=== PATIENT | female | born 2000 | race African-American/Black ===

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

== ENCOUNTER 2018-09-27 19:07 | Inpatient (IN) ==
[2018-09-27] MEDS ORDERED: LACTATED RINGER'S 1,000 ML IV SCH ×2 (19:30→20:23)
[2018-09-27 19:44] LABS: Basophils # (auto) 0.04 K/uL (0-0.2); Basophils % (auto) 0.3 %; Eosinophils # (auto) 0.02 K/uL (0-0.5); Eosinophils % (auto) 0.1 %; Hematocrit (blood only) 34.9 % (37-47); Immature Granulocytes # (auto) 0.12 K/uL (0.00-0.02); Immature Granulocytes % (auto) 0.8 %; Lymphocytes % (auto) 24.4 %; Mean Corpuscular Hgb Conc 34.4 g/dL (32-36); Mean Corpuscular Volume 91.4 fL (80-100); Mean Platelet Volume 11.6 fL (7.4-10.4); Monocytes # (auto) 1.47 K/uL (0.11-0.59); Monocytes % (auto) 9.7 %; Neutrophils # (auto) 9.82 K/uL (1.4-6.5); Neutrophils % (auto) 64.7 %; Platelet Count 205 K/uL (130-400); RDW Coefficient of Variation 12.9 % (11.5-14.5); RDW Standard Deviation 43.1 fL (36.4-46.3); Red Blood Count 3.82 M/uL (4.2-5.4); White Blood Count 15.17 K/uL (4.8-10.8)
[2018-09-27] MEDS ORDERED: CEFAZOLIN 2000MG 2,000 MG/15 ML SYR IV SCH (19:45)
[2018-09-27] MEDS ORDERED: CITRIC ACID/SODIUM CITRATE 15 ML UDC ONE (19:47)
--- NOTE | 2018-09-27 20:01 | Anesthesiology Consultation ---
Date of Service September 27, 2018 Assessment & Plan (1) Encounter for pre-operative examination: Chart Review Chart Review: Patient NOT seen in Pre Admission Testing and Acceptable Risk for Labor Epidural Consults Requested none ASA ASA2 Proposed Anesthesia Anesthesia Type: Spinal Risk / Benefits Reviewed With: PT / POA / Parent / Guardian, Accepts Plan and Informed Consent Obtained History Surgery Operation Date: 09/27/18 19:30 Proposed Procedures p Section in LD - Pedro Robles Jr, MD, FACOG Height/Weight Height: 5 ft 3 in Weight: 79.683 kg Allergies Allergy/AdvReac Type Severity Reaction Status Date / Time imipramine [From Tofranil] Allergy Chest Pain Verified 09/27/18 11:09 topiramate [From Topamax] Allergy Chest Pain Verified 09/27/18 11:08 Medications Home Medications Medication Instructions Recorded Confirmed Last Taken No Known Home Medications 09/27/18 09/27/18 Unknown Active Medications Generic Name Dose Route Start Last Admin Trade Name Freq PRN Reason Stop Dose Admin Citric Acid/Sodium Citrate 30 ml 09/28/18 06:00 09/27/18 19:48 Bicitra PO 09/28/18 06:01 30 ml PREOP ANA LAURA Administration Lactated Ringer's 1,000 mls @ 999 mls/hr 09/27/18 19:30 09/27/18 19:46 Lr IV 09/27/18 20:30 999 mls/hr .Q1H1M ANA LAURA Administration NPO Date Last Intake of Fluids: 09/27/18 Time Last Intake of Fluids: 18:00 Date Last Intake of Solids: 09/27/18 Time Last Intake of Solids: 16:30 Past Medical History Medical History Anxiety Attention deficit disorder (ADD) Bipolar disorder Depression Gastritis Post traumatic stress disorder Exercise / Class Metabolic Activity II 4-5 Yardwork/Stairs/Walk up hill Negative for chest pain or shortness of breath. Patient denies active symptoms of GERD. Past Family History Family History Brother Family history of diabetes mellitus Grandfather (Paternal) Family history of diabetes mellitus Past Surgical History Surgical History Family history of reaction to anesthesia MOTHER-SLOW TO WAKE UP History of section X 1 History of esophagogastroduodenoscopy (EGD) History of tooth extraction Nausea and vomiting after administration of anesthetic agent Past Anesthesia History No Hx of Anesthesia Complications History of PONV No Hx of Motion Sickness and History of PONV Social History Smoking Status: Current every day smoker tobacco type: cigarettes Smoking cigarettes per day: 3 Hx Alcohol Use: Yes (drank one week on vacation but none since +preg test) Alcohol type: hard liquor Hx Substance Use: No substance use type: does not use Review of Systems Patient denies history of abnormal bleeding or bleeding disorder. Patient denies active use of anticoagulants other than low dose aspirin. Patient denies numbness, tingling or weakness in lower extremities. Physical Exam Vital Signs Last Vital Signs Temp 36.8 C 09/27/18 19:25 Pulse 96 H 09/27/18 19:25 Resp 18 09/27/18 19:25 BP 103/52 L 09/27/18 19:25 Constitutional not obese (Gravid uterus) ENMT Mouth: no TMJ abnormality and oral opening not small Thyromental Distance: > or= 3.5 Finger Breadths Mallampati Class: I Neck normal visual inspection; neck extension not limited Respiratory normal respiratory effort Auscultation: lungs clear to auscultation bilaterally Cardiovascular Rate/Rhythm: regular rate and regular rhythm Heart Sounds: no murmur Neurologic moves all extremities Motor/Sensory: no sensory deficit Psychiatric Orientation: alert and oriented x 3 Testing Laboratory Results 09/27/18 19:33
[2018-09-27] MEDS ORDERED: PHENYLEPHRINE HCL 10 MG/ML VIAL ONE (20:04)
[2018-09-27] MEDS ORDERED: MoRPHine SULFATE PF 1 MG/ML 10 ML AMP/VIAL ONE (20:05)
[2018-09-27] MEDS ORDERED: fentaNYL citrate 100 MCG/2 ML VIAL ONE (20:05)
--- NOTE | 2018-09-27 20:10 | History & Physical Bridge Note ---
Date of Service September 27, 2018 History & Physical Bridge Note I have examined the patient, reviewed the History & Physical and in the interval since the performance of the History & Physical I have noted the following changes of clinical significance: Formal H&P dictated, permit signed
--- NOTE | 2018-09-27 20:37 | History and Physical Report ---
DATE OF ADMISSION: 09/27/2018 ADMITTING DIAGNOSES: 1. Term . 2. Spontaneous rupture of membranes with active labor. 3. Previous section. ADMISSION HISTORY: The patient is a 18-year-old 2, para 1 with an EDC of 10/08/2018 by dates and first trimester ultrasound who is admitted at 38+ weeks gestational age with spontaneous rupture of membranes and contractions. The patient states the membranes ruptured approximately 1700 hours, described the fluid as clear, with subsequent onset of contractions. The patient's first was a primary section for failure to progress. The patient had been counseled about the risks and benefits of a repeat section versus a vaginal after . The patient had been scheduled for the repeat section on 10/03/2018. The patient has had a benign course. Blood type is O positive, antibody negative, rubella immune and hepatitis B negative. She had a negative cell free DNA screening, negative AFP, normal 1 hour Glucola x2, and a negative third trimester beta strep culture. PAST MEDICAL HISTORY: OBSTETRICAL: As above. GYNECOLOGICAL: None. MEDICAL: Hypothyroidism. SURGICAL: [place] teeth extraction. ALLERGIES: No known drug allergies. SOCIAL HISTORY: Positive for smoking. FAMILY HISTORY: Noncontributory. REVIEW OF SYSTEMS: As per HPI. ADMISSION PHYSICAL EXAMINATION: GENERAL: Showed a gravid female, in no acute distress. VITAL SIGNS: Her blood pressure of 103/52 and weight of 180 pounds. HEENT EXAMINATION: Unremarkable. NECK: Supple. LUNGS: Clear. HEART: With a regular rhythm and rate. ABDOMEN: Gravid, vertex. Positive heart tones. Estimated weight of 7-1/2 pounds. PELVIC: Shows gross rupture. The cervix is 1 cm dilated, 70% effaced, -2 station. EXTREMITIES: Show no deep calf tenderness. NEUROLOGIC: Grossly intact. IMPRESSION: This patient is a 18-year-old 2, para 1 at 38+ weeks gestational age, previous sections and spontaneous rupture of membranes with labor. PLAN: The patient desires a repeat section. Risks, benefits and alternatives to the surgery have been discussed, while the benefits will be delivery of the , the risks are bleeding, infection, inadvertent injury to bowel or bladder, readmission or reoperation. The patient understands this, permit has been signed, and she wishes to proceed.
[2018-09-27] MEDS ORDERED: OXYTOCIN 10 UNITS/ML VIAL ONE ×4 (20:55→21:11)
[2018-09-27] MEDS ORDERED: MIDAZOLAM HCL 1 MG/ML 2ML VIAL ONE (20:57)
[2018-09-27] MEDS ORDERED: ONDANSETRON INJ 2 MG/ML 2 ML VIAL ONE (21:03)
--- NOTE | 2018-09-27 21:14 | Post Operative Brief Note ---
Immediate Post Op Note v1 Date of Surgery September 27, 2018 Pre & Post Diagnosis Operation Date: 09/27/18 19:30 Pre-Op Diagnosis: 1: Term 2: Spontaneous rupture of membranes 3: Previous section Post-Op Diagnosis: 1: Same 2: Uterine incision extension Procedure Operation Date: 09/27/18 19:30 <No data on this case meets the specified criteria> 1) Repeat LCT C/S 2) Repair uterine extension Surgeon Pedro Robles Jr, MD, FACOG Side Puller Nursing Estimated Blood Loss 800 Findings See Below (viable male Apgars 9/9; weight 6lbs 8 ozs, gasses pending, vertical midline extension of lower uterine incision, "inverted T", normal appearing tubes and ovaries bilaterally)
[2018-09-27 21:31] LABS: Base Excess Cord Arterial Bld -5.9 mEq/L (-9-1.8); CO2 Cord Arterial Blood 44 mmHg (39.1-73.5); HCO3 Cord Arterial Blood 21 mmol/L (19.7-28.5); pH Cord Arterial Blood 7.29 (7.1-7.38)
[2018-09-27 21:37] LABS: Base Excess Cord Venous Blood -5.5 mEq/L (-7.7-1.9); Cord Venous Blood HCO3 18 mmol/L (18.4-26.8); Cord Venous Blood PCO2 31 mmHg (30.4-57.2); Cord Venous Blood PO2 27 mmHg (14.1-43.3); Cord Venous Blood pH 7.39 (7.20-7.44)
[2018-09-27 21:38] LABS: Oxygen Sat Cord Arterial Blood < 60.0 % (<60)
[2018-09-27] MEDS ORDERED: NALOXONE HCL 0.4 MG/1 ML VIAL/CARP IV PRN (21:43)
[2018-09-27] MEDS ORDERED: PROMETHAZINE HCL 25 MG in SODIUM CHLORIDE 0.9% 50 ML IV PRN (21:43)
[2018-09-27] MEDS ORDERED: ONDANSETRON INJ 2 MG/ML 2 ML VIAL IV PRN (21:43)
[2018-09-27] MEDS ORDERED: ePHEDrine sulfate 50 MG/ML AMP IV PRN (21:43)
[2018-09-27] MEDS ORDERED: MoRPHine SULFATE 2 MG/ML CARP IV PRN (21:43)
[2018-09-27] MEDS ORDERED: NALOXONE HCL 0.08 MG in SYRINGE 1.8 ML IV PRN (21:43)
[2018-09-27] MEDS ORDERED: LACTATED RINGER'S 500 ML IV PRN (21:43)
[2018-09-27] MEDS ORDERED: ACETAMINOPHEN 1000 MG/100 ML IV IV PRN (21:43)
[2018-09-27] MEDS ORDERED: NALOXONE HCL 1 MG in SODIUM CHLORIDE 0.9% 1000ML 1,000 ML IV PRN (21:43)
[2018-09-27] MEDS ORDERED: NALBUPHINE HCL INJ 10 MG/ML AMP IV PRN (21:43)
[2018-09-27] MEDS ORDERED: KETOROLAC 30 MG/ML VIAL IV PRN ×2 (21:43→22:32)
[2018-09-27] MEDS ORDERED: DiphenhydrAMINE HCL 50 MG/ML VIAL IV PRN (21:43)
[2018-09-27] MEDS ORDERED: MoRPHine SULFATE PF 1 MG/ML 10 ML AMP/VIAL INT SPINAL ONE (21:43)
[2018-09-27] MEDS ORDERED: NO NARCOTICS OR SEDATIVES SCH (21:45)
[2018-09-27] MEDS ORDERED: SODIUM CHLORIDE 0.9% 1000ML 1,000 ML IV SCH (21:45)
[2018-09-27] MEDS ORDERED: DC INTRASPINAL MORPHINE SCH (21:45)
[2018-09-27] MEDS ORDERED: ACETAMINOPHEN 1,000 MG/100 ML VIAL IV PRN (22:00)
--- NOTE | 2018-09-27 22:17 | Anesthesiology Progress Note ---
Date of Service September 27, 2018 Anesthesia Post Procedure Vital Signs Vital Signs: Temp Pulse Resp BP Pulse Ox 09/27/18 22:13 78 99 09/27/18 22:12 68 20 108/54 L 09/27/18 22:08 76 98 09/27/18 22:03 80 18 117/56 L 99 09/27/18 21:58 78 98 09/27/18 21:55 69 16 113/57 L 09/27/18 21:53 82 99 09/27/18 21:52 89 90 09/27/18 21:48 84 99 09/27/18 21:43 87 99 09/27/18 21:42 75 18 143/64 H 09/27/18 21:38 82 97 09/27/18 21:33 73 100 09/27/18 21:32 36.5 C 73 18 101/56 L 09/27/18 19:25 36.8 C 96 H 18 103/52 L 09/27/18 19:14 96 H 103/52 L Pain Intensity Lower Abdomen: Pain Intensity: 3 Transfer of Care Handoff Completed per policy Notes Mental Status: alert / awake / arousable and participated in evaluation Nausea / Vomiting: adequately controlled Pain: adequately controlled Airway Patency, RR, SpO2: stable & adequate BP & HR: stable & adequate Hydration State: stable & adequate Neuraxial Anesthesia: was administered and sensory block is resolving Anesthetic Complications: no major complications apparent and Pt Satisfied with anesthetic care
[2018-09-27] MEDS ORDERED: SUPERCREAM 0.870% 15 GM JAR EXT PRN (22:32)
[2018-09-27] MEDS ORDERED: BENZOCAINE 20% AER SPR 82.5 GM CAN EXT PRN (22:32)
[2018-09-27] MEDS ORDERED: DIPHTHERIA/TETANUS/PERTUSSIS 0.5 ML SYR/VIAL IM ONE (22:32)
[2018-09-27] MEDS ORDERED: HYDROCORTISONE ACETATE 25 MG SUPP PR PRN (22:32)
--- NOTE | 2018-09-27 22:36 | Operative Report ---
DATE OF OPERATION: 09/27/2018 PREOPERATIVE DIAGNOSES: 1. Term . 2. Spontaneous rupture of membranes. 3. Previous section. POSTOPERATIVE DIAGNOSES: 1. Term . 2. Uterine incision extension. PROCEDURE PERFORMED: 1. Repeat low cervical transverse section. 2. Repair of uterine extension. SURGEON: Pedro Robles MD ANESTHESIA: Spinal. FINDINGS: Viable male infant with Apgars of 9 and 9, weight of 6 pounds 8 ounces, normal appearing tubes and ovaries bilaterally. Arterial and venous cord gases are pending. Vertical midline extension of the uterine incision on the inferior margin of the uterine incision creating an inverted T extension and uterine incision closed with 2 layers of 4-0 Vicryl. PROCEDURE IN DETAIL: The patient was taken to the operating room and after general anesthesia, was placed in supine position and draped and prepped in the usual fashion. Pfannenstiel type incision excising previous surgical scar was made. Underlying subcutaneous tissue was dissected down to the ventral abdominal fascia, which was nicked and opened in a horizontal manner. Preperitoneal fascia was dissected away until the peritoneal cavity was entered and opened in a vertical manner. Bladder blade was placed and the peritoneum overlying the uterus was elevated, opened in a semi-lunar fashion, the inferior margin of which was taken down creating the bladder flap. The uterus was entered sharply and extended in a semilunar fashion, rupture of clear fluid. Viable male was delivered. Cord was clamped and cut and the baby was passed off to pediatrics who was in attendance for the delivery. Cord gases were obtained. The placenta was delivered spontaneously and the uterus was exteriorized. The uterine incision had a midline extension of the inferior margin extending downward for a distance of 5 cm. The edges of the uterine incision were isolated with T clamps. The extension was closed with 2 layers of 4-0 Vicryl, the first a running locking stitch, the second an imbricating stitch. The uterine incision was then closed with 2 layers of 4-0 Vicryl, first a running locking stitch and the second an imbricating stitch. Hemostasis was present. The pelvis was thoroughly irrigated with 1000 mL of warm saline. The uterine incision was clean, dry and intact. The uterus was returned to the pelvic cavity. The pericolic gutters were cleared bilaterally of any blood tissue and/or clot. Sponge and needle count was correct. Inspection of the uterine incision again showed hemostasis. The rectus muscle was then plicated in the midline with a running 2-0 Vicryl suture and the fascia was closed laterally with a running 0 Vicryl stitch. The subcutaneous tissue was irrigated with warm saline and the skin incision was closed with a 4-0 Monocryl subcuticular suture. Sterile dressing was applied. The patient was taken to the recovery room in satisfactory condition. I attest to the content of the Intraoperative Record and any orders documented therein. Any exception s are noted below.
[2018-09-28] MEDS: LACTATED RINGER'S 1,000 ML IV SCH ×2 (02:09→07:51)
[2018-09-28] MEDS: IBUPROFEN 600 MG TAB PO PRN ×5 (04:08→23:06)
[2018-09-28] MEDS ORDERED: CITRIC ACID/SODIUM CITRATE 15 ML UDC PO SCH (06:00)
[2018-09-28 06:31] LABS: Basophils # (auto) 0.03 K/uL (0-0.2); Basophils % (auto) 0.2 %; Eosinophils # (auto) 0.02 K/uL (0-0.5); Eosinophils % (auto) 0.1 %; Hematocrit (blood only) 30.4 % (37-47); Hemoglobin 10.2 g/dL (12.0-16.0); Immature Granulocytes # (auto) 0.09 K/uL (0.00-0.02); Immature Granulocytes % (auto) 0.5 %; Lymphocytes # (auto) 2.87 K/uL (1.2-3.4); Lymphocytes % (auto) 14.4 %; Mean Corpuscular Hgb Conc 33.6 g/dL (32-36); Mean Corpuscular Volume 91.3 fL (80-100); Monocytes # (auto) 1.76 K/uL (0.11-0.59); Monocytes % (auto) 8.8 %; Neutrophils # (auto) 15.21 K/uL (1.4-6.5); Platelet Count 188 K/uL (130-400); RDW Coefficient of Variation 12.9 % (11.5-14.5); RDW Standard Deviation 43.2 fL (36.4-46.3); Red Blood Count 3.33 M/uL (4.2-5.4); White Blood Count 19.98 K/uL (4.8-10.8)
--- NOTE | 2018-09-28 08:02 | Obstetrical Progress Note ---
Date of Service September 28, 2018 Assessment & Plan (1) Previous delivery affecting , antepartum: - discussed surgery and finding with patient - will begin ambulation later in the day - routine care - doing well Subjective Voiding: [place] catheter in place Feeding Type:: breast feeding Physical Exam Constitutional WD/WN, vitals as above Respiratory normal respiratory effort, lungs clear to auscultation Cardiovascular RRR, no murmur, no edema Gastrointestinal (Abdomen) Incision intact, appropriate post-op tenderness Musculoskeletal (-) deep calf tenderness Results & Data Vital Signs (Past 12 Hours) Vital Signs Temp Pulse Pulse Resp BP BP Pulse Ox 09/28/18 06:55 18 99 09/28/18 05:55 18 99 09/28/18 04:55 16 95 09/28/18 03:55 18 98 09/28/18 03:48 36.9 C 76 18 109/65 97 09/28/18 02:55 18 97 09/28/18 01:55 18 98 09/28/18 00:55 37.0 C 81 18 113/65 97 09/27/18 23:55 36.8 C 78 18 120/71 96 09/27/18 23:45 96 H 98 09/27/18 23:40 83 98 09/27/18 23:35 93 H 99 09/27/18 23:33 84 98 09/27/18 23:32 36.8 C 83 18 111/59 L 09/27/18 23:28 80 97 09/27/18 23:23 81 99 09/27/18 23:22 75 110/61 09/27/18 23:18 81 98 09/27/18 23:13 79 98 09/27/18 23:12 76 108/60 09/27/18 23:08 83 99 09/27/18 23:03 91 H 99 09/27/18 23:02 85 20 107/67 09/27/18 22:58 80 99 09/27/18 22:53 88 98 09/27/18 22:52 76 106/59 L 09/27/18 22:48 80 98 09/27/18 22:43 80 99 09/27/18 22:42 67 106/57 L 09/27/18 22:38 79 98 09/27/18 22:33 82 99 09/27/18 22:32 36.6 C 82 18 105/57 L 99 09/27/18 22:28 80 98 09/27/18 22:23 78 99 09/27/18 22:22 90 16 120/57 L 09/27/18 22:18 81 98 09/27/18 22:13 78 99 09/27/18 22:12 68 20 108/54 L 09/27/18 22:08 76 98 09/27/18 22:03 80 18 117/56 L 99 09/27/18 21:58 78 98 09/27/18 21:55 69 16 113/57 L 09/27/18 21:53 82 99 09/27/18 21:52 89 90 09/27/18 21:48 84 99 09/27/18 21:43 87 99 09/27/18 21:42 75 18 143/64 H 09/27/18 21:38 82 97 09/27/18 21:33 73 100 09/27/18 21:32 36.5 C 73 18 101/56 L
[2018-09-28] MEDS: PRENATAL VITAMIN 1 TAB PO SCH (10:14)
[2018-09-28] MEDS: FERROUS SULFATE 325 MG TAB PO SCH (10:19)
[2018-09-28] MEDS ORDERED: DOCUSATE SODIUM 100 MG CAP PO ONE (11:52)
[2018-09-28] MEDS ORDERED: ONDANSETRON INJ 2 MG/ML 2 ML VIAL IV PRN (15:43)
[2018-09-28] MEDS ORDERED: KETOROLAC 30 MG/ML VIAL IV PRN (15:43)
[2018-09-28] MEDS ORDERED: OXYCODONE/ACETAMINOPHEN 5mg/325mg TAB PO PRN (15:43)
[2018-09-28] MEDS ORDERED: DiphenhydrAMINE HCL 50 MG/ML VIAL IV PRN (15:43)
[2018-09-28] MEDS: ACETAMINOPHEN 325 MG TAB PO PRN (17:35)
--- NOTE | 2018-09-28 19:41 | Obstetrical Progress Note ---
Date of Service September 28, 2018 Assessment & Plan (1) Left against medical advice: Have advised the patient leaving the hospital after 24 hours after major abdominal surgery is unwise. Patient could develop a serious infection, or unforeseen complications that will not be able to be addressed. I appreciate the situation that the patient finds herself in. I have asked her why the father of the baby of the younger child cannot watch her older child. She states that this is not his responsibility and that is not the type of relationship that they have. I am unaware whether or not pediatrics will discharge the patient from the hospital. The patient states that she is going to check the baby against medical advice too. I have told the patient that I have serious concerns about this social situation and that notifying CYS will be part of my responsibility. The patient is going to leave AMA. Subjective Called to evaluate the patient secondary to her desire to leave against medical technicians. The patient is less than 24 hours after her repeat section. The patient states that she does not have childcare for her 3-year-old who was at home. Her normal caregiver has to go to work, and her mother is not available to watch the child. The father of the baby of her oldest child is different than the father of the baby of this child. She does not feel that is the responsibility of her current FOB to watch her other child. Results & Data Vital Signs (Past 12 Hours) Vital Signs Temp Pulse Pulse Resp BP Pulse Ox 09/28/18 15:35 36.4 C L 84 16 95/49 L 98 09/28/18 12:15 36.9 C 83 18 110/58 L 98 09/28/18 08:50 37.0 C 87 18 104/63 99 09/28/18 08:40 18 99
--- NOTE | 2018-09-28 20:18 | Obstetrical Progress Note ---
Date of Service September 28, 2018 Subjective Patient has decided not to sign put AMA. She has found childcare for her older child Results & Data Vital Signs (Past 12 Hours) Vital Signs Temp Pulse Pulse Resp BP Pulse Ox 09/28/18 15:35 36.4 C L 84 16 95/49 L 98 09/28/18 12:15 36.9 C 83 18 110/58 L 98 09/28/18 08:50 37.0 C 87 18 104/63 99 09/28/18 08:40 18 99
[2018-09-28] MEDS ORDERED: MAGNESIUM HYDROXIDE SUSP 30 ML UDC PO SCH (21:00)
[2018-09-28] MEDS ORDERED: SENNA 8.6 MG TAB PO SCH (21:00)
--- NOTE | 2018-09-28 22:50 | Anesthesiology Progress Note ---
Date of Service September 28, 2018 Anesthesia Post Procedure Vital Signs Vital Signs: Temp Pulse Pulse Pulse Resp BP BP 09/28/18 20:17 36.7 C 82 18 107/66 09/28/18 15:35 36.4 C L 84 16 95/49 L 09/28/18 12:15 36.9 C 83 18 110/58 L 09/28/18 08:50 37.0 C 87 18 104/63 09/28/18 08:40 18 09/28/18 07:15 18 09/28/18 06:55 18 09/28/18 05:55 18 09/28/18 04:55 16 09/28/18 03:55 18 09/28/18 03:48 36.9 C 76 18 109/65 09/28/18 02:55 18 09/28/18 01:55 18 09/28/18 00:55 37.0 C 81 18 113/65 09/27/18 23:55 36.8 C 78 18 120/71 09/27/18 23:45 96 H 09/27/18 23:40 83 09/27/18 23:35 93 H 09/27/18 23:33 84 09/27/18 23:32 36.8 C 83 18 111/59 L 09/27/18 23:28 80 09/27/18 23:23 81 09/27/18 23:22 75 110/61 09/27/18 23:18 81 09/27/18 23:13 79 09/27/18 23:12 76 108/60 09/27/18 23:08 83 09/27/18 23:03 91 H 09/27/18 23:02 85 20 107/67 09/27/18 22:58 80 09/27/18 22:53 88 09/27/18 22:52 76 106/59 L Pulse Ox 09/28/18 20:17 97 09/28/18 15:35 98 09/28/18 12:15 98 09/28/18 08:50 99 09/28/18 08:40 99 09/28/18 07:15 100 09/28/18 06:55 99 09/28/18 05:55 99 09/28/18 04:55 95 09/28/18 03:55 98 09/28/18 03:48 97 09/28/18 02:55 97 09/28/18 01:55 98 09/28/18 00:55 97 09/27/18 23:55 96 09/27/18 23:45 98 09/27/18 23:40 98 09/27/18 23:35 99 09/27/18 23:33 98 09/27/18 23:32 09/27/18 23:28 97 09/27/18 23:23 99 09/27/18 23:22 09/27/18 23:18 98 09/27/18 23:13 98 09/27/18 23:12 09/27/18 23:08 99 09/27/18 23:03 99 09/27/18 23:02 09/27/18 22:58 99 09/27/18 22:53 98 09/27/18 22:52 Pain Intensity Lower Abdomen: Pain Intensity: 2 Transfer of Care Handoff Completed per policy Notes Mental Status: alert / awake / arousable and participated in evaluation Nausea / Vomiting: adequately controlled Pain: adequately controlled Airway Patency, RR, SpO2: stable & adequate BP & HR: stable & adequate Hydration State: stable & adequate Neuraxial Anesthesia: was administered and sensory block resolved Anesthetic Complications: no major complications apparent and Pt Satisfied with anesthetic care Notes: Patient denies headache. Has been up walking without weakness or residual numbness. Patient encouraged to contact anesthesia for any concerns or new headache
[2018-09-29] MEDS: IBUPROFEN 600 MG TAB PO PRN ×2 (05:04→09:46)
[2018-09-29 05:59] LABS: Hematocrit (blood only) 31.5 % (37-47); Hemoglobin 10.5 g/dL (12.0-16.0)
--- NOTE | 2018-09-29 06:18 | Obstetrical Progress Note ---
Date of Service September 29, 2018 Assessment & Plan (1) Previous delivery affecting , antepartum: - patient ambulating, afebrile, tolerating po - will d/c home, Rx's given, instructions given - all questions answered - f/u in 6 weeks for post-op check Subjective Ambulation: ambulating normally Voiding: no voiding problems Feeding Type:: breast feeding desires d/c Physical Exam Constitutional WD/WN, vitals as above Respiratory normal respiratory effort, lungs clear to auscultation Cardiovascular RRR, no murmur, no edema Gastrointestinal (Abdomen) Incision intact, appropriate post-op tenderness Musculoskeletal (-) deep calf tenderness Results & Data Vital Signs (Past 12 Hours) Vital Signs Temp Pulse Pulse Resp BP Pulse Ox 09/28/18 23:02 36.9 C 72 16 102/65 96 09/28/18 20:17 36.7 C 82 18 107/66 97
[2018-09-29] MEDS: ACETAMINOPHEN 325 MG TAB PO PRN (08:27)
[2018-09-29] MEDS: PRENATAL VITAMIN 1 TAB PO SCH (08:28)
[2018-09-29] MEDS: FERROUS SULFATE 325 MG TAB PO SCH (08:28)
--- NOTE | 2018-09-29 11:17 | Discharge Summary ---
ADMITTING DIAGNOSES: 1. Term . 2. Active labor. 3. Previous section. DISCHARGE DIAGNOSES: Same. PROCEDURES PERFORMED: Repeat low cervical transverse section. DISCHARGE MEDICATIONS: 1. Percocet 5/325 1-2 p.o. q. 4-6 hours p.r.n. pain. 2. Motrin 600 mg p.o. q. 6 hours p.r.n. pain. ADMISSION HISTORY AND PHYSICAL: The patient is a 18-year-old 2, para 1 with an EDC of 08 October by dates and first trimester ultrasound who is admitted at 38+ weeks gestational age with spontaneous rupture of membranes and contractions. The patient states membranes ruptured approximately 1700 hours on the day of admission, she described the fluid as clear, with subsequent onset of contractions. The patient's first was a primary section for failure to progress. The patient had been counseled about the risks and benefits of a repeat versus a vaginal after . The patient had been scheduled for repeat section on 10/03/2018. The patient had benign course. Blood type O positive, antibody negative, rubella immune, hepatitis B negative. She had a negative cell free DNA screening, negative AFP, normal 1 hour Glucola x2, and a negative third trimester beta strep culture. ADMISSION PHYSICAL EXAMINATION: GENERAL: Showed a gravid female in no acute distress. VITAL SIGNS: Blood pressure 103/52 and a weight 180 pounds. HEENT: Unremarkable. NECK: Supple. LUNGS: Clear. HEART: With a regular rhythm and rate. ABDOMEN: Gravid, vertex, positive heart tones, estimated weight of 7-1/2 pounds. PELVIC: Showed gross rupture. The cervix was 1 cm dilated, 70% effaced and -2 station. EXTREMITIES: Showed no deep calf tenderness. NEUROLOGIC: Grossly intact. ADMISSION LABORATORY VALUES: Showed an H&H of 12.0 and 34.9. HOSPITAL COURSE: On day of admission, patient was taken to the operating room where she underwent the above-listed procedures. Operative findings revealed a viable male with Apgars of 9 and 9 and a weight of 6 pounds 8 ounces, normal appearing tubes and ovaries bilaterally. There was a vertical midline extension of the uterine incision on the inferior margin creating an inverted T extension. The uterine incision was closed with 2 layers of 4-0 Vicryl. Postoperatively, the patient did well. [place] catheter was removed on the first postoperative day. H&H came back stable at 10.2 and 30.4. The patient was discharged home on the second postoperative day with routine discharge instructions and the prescriptions for the medications as listed as above. She will follow up in the office in 6 weeks' time for a postoperative check but as always she has been instructed to call with any questions, problems or difficulties.
== END 2018-09-29 14:20 | disposition home or self-care (01) | DRG 788 ==
LOC: OPB 19:07 → 4S1 19:09 → 4S2 23:55